=== PATIENT | female | born 1955 | race Caucasian/White ===

== ENCOUNTER 2018-07-21 05:49 | Day surgery (SDC) | payer BC ==
[~2018-07-21] VITALS: Ht 160 cm; Wt 86.4 kg
--- NOTE | ~2018-07-21 | OP ---
PATIENT NAME: ALIS MIRANDA MEDICAL RECORD: [id number] :59 LOCATION:[facility] ADMISSION DATE: SURGEON: DHEERAJ GONZALES DO DATE OF OPERATION: 07/21/2018 PROCEDURE: Colonoscopy with polypectomy. INDICATIONS FOR PROCEDURE: Screening colonoscopy. Her last colonoscopy was greater than 5 years ago with polyps removed at that time. SCOPE: Olympus video pediatric colonoscope. MEDICATIONS: Propofol 450 mg IV per anesthesia. WITHDRAWAL TIME: 27 minutes. ESTIMATED BLOOD LOSS: Minimal. COMPLICATIONS: None. FINDINGS: Informed consent was given. The patient was made comfortable with the above medication. After reaching an adequate level of sedation by slow IV push, the patient was placed on her left side. A digital rectal examination was performed and was normal. The endoscope was then advanced under direct visualization through the rectum to the cecum, confirmed by the presence of the appendiceal orifice and ileocecal valve. The endoscope was slowly withdrawn and the mucosa was carefully examined. The prep quality was good. There were 6 polyps visualized on today's examination. These were all benign appearing and sessile polyps ranging in size from 2 mm to 7 mm in diameter. All of these polyps were removed using hot forceps. They were all completely removed. Two polyps were located in the cecum. One polyp was located in the ascending colon. Two polyps were located in the transverse colon, and a final polyp was located in the sigmoid colon. There were no diverticula visualized on today's examination. Retroflexion was performed in the rectum with a normal-appearing rectal wall. The endoscope was then withdrawn from the patient. The patient tolerated the procedure well and there were no complications. IMPRESSION: 1. Multiple polyps as described above, removed using hot forceps. 2. Otherwise normal colonoscopy. PLAN AND RECOMMENDATIONS: 1. Discharge home when recovery parameters are met. 2. Continue current diet. 3. Continue current medications. 4. Resume Coumadin in 2 days. 5. Resume aspirin in 3 days. 6. Recall colonoscopy in 3 years. TRANSINT:[id number] Voice Confirmation ID: [id number] DOCUMENT ID: [id number] OPERATIVE REPORT [id number] ALIS MIRANDADHEERAJ DO CC: [id number] DICTATION DATE: 07/21/18 0856 [employer] SPECIALIST: 07/21/18 0904 [place] [address]
[2018-07-21 06:14] LABS: HEMATOCRIT 42.2 % (36.0-48.0); HEMOGLOBIN 14.1 g/dL (12-16); MCH 30.3 pg (26.0-34.0); MCHC 33.4 g/dL (31.0-37.0); MCV 90.8 fL (80.0-100.0); MEAN PLATELET VOLUME 11.1 fL (7.4-10.4); RBC 4.65 10x6/uL (4.00-5.40); RDW 13.2 % (11.5-14.5); WBC 7.2 10x3/uL (4.8-10.8)
[2018-07-21 06:26] LABS: APTT 26.9 SECONDS (22.8-39.4); INR 1.02 (0.85-1.17)
[2018-07-21 06:48] LABS: CALC OSMOLALITY 280 mosm/kg (275-300); CALCIUM 9.3 mg/dL (8.5-10.1); CARBON DIOXIDE 27.5 mmol/L (21.0-32.0); CHLORIDE - SERUM 104 mmol/L (98-107); CREATININE - SERUM 0.7 mg/dL (0.6-1.3); GLUCOSE 109 mg/dL (74-106); SODIUM 141 mmol/L (136-145); UREA NITROGEN 9 mg/dL (7-18); eGFR NON AFRICAN AMERICAN 90 mL/min (90-120)
[2018-07-21] MEDS ORDERED: COUMADIN5 MG PO (07:09)
[2018-07-21] MEDS ORDERED: DESERYL50 M2 PO (07:10)
[2018-07-21] MEDS ORDERED: BYSTOLIC10 MG PO (07:11)
[2018-07-21] MEDS ORDERED: VESICARE5 MG PO (07:12)
[2018-07-21] MEDS ORDERED: OMEPRAZOLE20 M1 PO (07:13)
[2018-07-21] MEDS ORDERED: BAYER CHEWABLE81 MG PO (07:14)
[2018-07-21] MEDS ORDERED: VITAMIN D31000 UNIT PO (07:15)
[2018-07-21 07:31] VITALS: BP 125/68; Ht 160 cm; Wt 86.4 kg
== END 2018-07-21 10:30 | disposition home or self-care (01) ==
LOC: D.OPS 05:49
PROVIDERS: Anesthesiology
DX: Z12.11 Encounter for screening for malignant neoplasm of colon (principal); D12.2 Benign neoplasm of ascending colon; D12.0 Benign neoplasm of cecum; D12.3 Benign neoplasm of transverse colon; K63.5 Polyp of colon; Z01.812 Encounter for preprocedural laboratory examination